=== PATIENT | female | born 1960 | race Caucasian/White ===

== ENCOUNTER 2023-06-29 23:04 | Emergency (ER) | payer BC ==
[2023-06-29] MEDS: Aspirin 81 MG Tab.Chew PO ONE (23:10)
[2023-06-30 00:02] LABS: BASOPHILS ABSOLUTE AUTO 0.04 10^3/uL (0.00-0.50); BASOPHILS PERCENT AUTO 0.4 % (0-1); EOSINOPHILS PERCENT AUTO 1.1 % (0-6); HEMATOCRIT 32.7 % (37.0-47.0); IMMATURE GRAN ABSOLUTE AUTO 0.01 10^3/uL (0.00-0.49); IMMATURE GRAN PERCENT AUTO 0.1 % (0.0-4.9); LYMPHOCYTES ABSOLUTE AUTO 3.18 10^3/uL (0.60-5.00); LYMPHOCYTES PERCENT AUTO 33.8 % (24-44); MEAN CORPUSCULAR HEMOGLOBIN 30.3 pg (27.0-32.0); MEAN CORPUSCULAR HGB CONC 33.6 g/dL (32.0-36.0); MEAN CORPUSCULAR VOLUME 90.1 fL (83.0-97.0); MONOCYTES ABSOLUTE AUTO 0.75 10^3/uL (0.00-1.50); NEUTROPHILS ABSOLUTE AUTO 5.32 x10^3/uL (1.80-8.00); NEUTROPHILS PERCENT AUTO 56.6 % (41-71); PLATELET COUNT,PLT 285 10^3/uL (150-400); RED BLOOD CELL COUNT 3.63 x10^6/uL (4.00-5.50); WHITE BLOOD CELL COUNT,WBC 9.4 10^3/uL (4.0-11.0)
[2023-06-30 00:26] LABS: ALANINE AMINOTRANSFERASE,ALT 26 U/L (12-78); ALBUMIN 2.9 g/dL (3.4-5.0); ALKALINE PHOSPHATASE 63 U/L (46-116); ASPARTATE AMNIOTRANSFERASE,AST 14 U/L (15-37); BILIRUBIN TOTAL 0.1 mg/dL (0.0-1.0); BLOOD UREA NITROGEN,BUN 14 mg/dL (7-18); CALCIUM 8.3 mg/dL (8.4-10.1); CARBON DIOXIDE,CO2 28 mmol/L (21-32); CHLORIDE,CL 108 mEq/L (98-106); CREATININE 0.9 mg/dL (0.6-1.0); ESTIMATED GFR 72 mL/min (>=60); GLUCOSE RANDOM 119 mg/dL (75-99); POTASSIUM,K 3.8 mEq/L (3.5-5.0); PROTEIN TOTAL,TP 6.4 g/dL (6.4-8.2); SODIUM,NA 141 mEq/L (136-145)
[2023-06-30] MEDS: Ketorolac 60 MG/2 ML SDV IM ONE (00:32)
== END 2023-06-30 00:45 | disposition home or self-care (01) ==
LOC: CC.ED 23:04
DX: I10 Essential (primary) hypertension (principal); Z88.8 Allergy status to other drugs, medicaments and biological substances; Z79.899 Other long term (current) drug therapy
CPT/HCPCS: 36415; 71046; 80053; 83735; 84484; 85025; 93005; 93010; 96372; 99284; 99285; A9270-GY; J1885

== ENCOUNTER 2024-10-17 13:07 | Emergency (ER) | payer MEDICAID ==
[2024-10-17 13:12] VITALS: BP 167/78; PULSE 88
[2024-10-17] MEDS: predniSONE 20 MG Tab PO STA (13:44)
== END 2024-10-17 13:52 | disposition home or self-care (01) ==
LOC: CC.ED 13:07
DX: U07.1 COVID-19 (principal); E78.00 Pure hypercholesterolemia, unspecified; I10 Essential (primary) hypertension; K21.9 Gastro-esophageal reflux disease without esophagitis; Z88.5 Allergy status to narcotic agent; Z88.8 Allergy status to other drugs, medicaments and biological substances; Z79.899 Other long term (current) drug therapy
CPT/HCPCS: 87428-QW; 99283; 99284; J7512